=== PATIENT | female | born 1965 | race Caucasian/White ===

== ENCOUNTER 2023-05-16 08:18 | Emergency (ER) | payer BC ==
[2023-05-16] MEDS ORDERED: Tetracaine 0.5% PF 4 ML BOT ONE (09:13)
[2023-05-16] MEDS ORDERED: Fluorescein Opthalmic Strip ONE (09:15)
== END 2023-05-16 09:35 | disposition home or self-care (01) ==
LOC: CSHERS 08:18
DX: S05.02XA Injury of conjunctiva and corneal abrasion without foreign body, left eye, initial encounter (principal); I10 Essential (primary) hypertension
CPT/HCPCS: 99283